=== PATIENT | female | born 2000 | race Caucasian/White ===

== ENCOUNTER → 2025-01-31 14:16 | Outpatient (CLI) | payer BC, SELFPAY ==
--- NOTE | 2025-01-31 14:17 | DI.RAD.S_ITS ---
PROCEDURE: XR KNEE RT 3V INDICATIONS: pain right below knee >1 yr TECHNIQUE: 3 views of the knee were acquired. COMPARISON: None. FINDINGS: On the patellar sunrise image there is mild lateral tilt of the patella in relation to the femoral trochlea. Trace knee joint effusion. No radiographic evidence of fracture, dislocation, high attenuation soft tissue foreign body or significant joint space narrowing. IMPRESSION: Mild lateral tilt of the patella. Trace knee joint effusion. If symptoms persist or worsen, or there is high clinical suspicion of knee abnormality, MRI could be performed. Dictated by: Manny Chan M.D. on 01/31/2025 at 14:50 Approved by: Manny Chan M.D. on 01/31/2025 at 14:51
== END ==
PROVIDERS: PCP Family Medicine; Referring Provider Physician Assistant; Visit Provider Physician Assistant
DX: M22.2X1 Patellofemoral disorders, right knee (principal)
CPT/HCPCS: 73562